=== PATIENT | male | born 2000 | race African-American/Black ===

== ENCOUNTER 2024-01-15 16:25 | Emergency (ER) | payer OTHER | END 2024-01-15 18:39 | disposition home or self-care (01) | LOC: VM.ED 16:25 | DX: R07.81 Pleurodynia (principal); R06.02 Shortness of breath; Z77.098 Contact with and (suspected) exposure to other hazardous, chiefly nonmedicinal, chemicals; Z91.018 Allergy to other foods | CPT/HCPCS: 71045; 93005; 99285 ==

== ENCOUNTER 2024-01-23 19:04 | Emergency (ER) | payer OTHER | END 2024-01-23 19:35 | disposition home or self-care (01) | LOC: VM.ED 19:04 | DX: S29.011D Strain of muscle and tendon of front wall of thorax, subsequent encounter (principal); Z91.048 Other nonmedicinal substance allergy status; X58.XXXA Exposure to other specified factors, initial encounter | CPT/HCPCS: 93005; 99284 ==